=== PATIENT | female | born 1955 | race African-American/Black ===

== ENCOUNTER 2017-04-30 17:39 | Emergency (ER) | payer OTHER ==
[~2017-04-30] VITALS: Ht 154.9 cm; Wt 70.3 kg
[~2017-04-30 17:39] MED LIST: FISHOIL PO; HYDROCHLOROTHIA25 M1 PO; K-DUR10 ME1 PO; PRILOSEC 20 MG20 MG PO; SELENIMIN200 MCG PO; SIMVASTATIN40 MG PO; VITAMIN D1000 UNI1 PO; VITAMIN D400 UNI1 PO
[2017-04-30 18:57] VITALS: BP 124/67
[2017-04-30] MEDS ORDERED: KEFLEX500 MG PO (18:57)
[2017-04-30] MEDS ORDERED: TRIAMCINOLONE 080 G3 TOP (18:57)
== END 2017-04-30 19:16 | disposition home or self-care (01) ==
LOC: ER 17:39
DX: L03.113 Cellulitis of right upper limb (principal); I10 Essential (primary) hypertension; K21.9 Gastro-esophageal reflux disease without esophagitis; F17.200 Nicotine dependence, unspecified, uncomplicated; Z98.890 Other specified postprocedural states; Z90.11 Acquired absence of right breast and nipple; Z85.3 Personal history of malignant neoplasm of breast; Z91.011 Allergy to milk products

== ENCOUNTER 2018-02-01 16:59 | Emergency (ER) | payer OTHER ==
[~2018-02-01] VITALS: Ht 154.9 cm; Wt 67.6 kg
[~2018-02-01 16:59] MED LIST changes: +KEFLEX500 MG PO; +TRIAMCINOLONE 080 G3 TOP
[2018-02-01 17:03] VITALS: BP 123/67
[2018-02-01] MEDS ORDERED: PREDNISONE 20 M20 MG PO (17:18)
[2018-02-01] MEDS ORDERED: KEFLEX500 M1 PO (17:18)
== END 2018-02-01 17:46 | disposition home or self-care (01) ==
LOC: ER 16:59
DX: R21 Rash and other nonspecific skin eruption (principal); I10 Essential (primary) hypertension; K21.9 Gastro-esophageal reflux disease without esophagitis; M19.90 Unspecified osteoarthritis, unspecified site; F17.210 Nicotine dependence, cigarettes, uncomplicated; Z85.3 Personal history of malignant neoplasm of breast; Z91.011 Allergy to milk products

== ENCOUNTER 2019-01-21 11:00 | Emergency (ER) | payer OTHER ==
[~2019-01-21] VITALS: Ht 152.4 cm; Wt 66.2 kg
[~2019-01-21 11:00] MED LIST changes: +KEFLEX500 M1 PO; +PREDNISONE 20 M20 MG PO
[2019-01-21] MEDS ORDERED: CLARITIN10 M2 PO (11:40)
[2019-01-21] MEDS ORDERED: ASPIR 8181 MG PO (11:40)
[2019-01-21 13:09] VITALS: BP 123/54
== END 2019-01-21 13:10 | disposition home or self-care (01) ==
LOC: ER 11:00
DX: M71.22 Synovial cyst of popliteal space [Baker], left knee (principal); K21.9 Gastro-esophageal reflux disease without esophagitis; I10 Essential (primary) hypertension; M13.862 Other specified arthritis, left knee; F17.210 Nicotine dependence, cigarettes, uncomplicated; Z91.011 Allergy to milk products

== ENCOUNTER 2021-07-07 20:40 | Observation (INO) | payer OTHER ==
[~2021-07-07] VITALS: Ht 154.9 cm; Wt 64.4 kg
[~2021-07-07 20:40] MED LIST changes: +ASPIR 8181 MG PO; +CLARITIN10 M2 PO
[2021-07-07 20:50] VITALS: BP 162/74
[2021-07-07 21:59] LABS: ABSOLUTE NEUTROPHILS 4.1 thou/uL (1.4-8.2); EOSINOPHILS 3.1 % (0.0-3.0); HEMATOCRIT 37.6 % (37.0-47.0); HEMOGLOBIN 12.1 gm/dL (12.0-15.0); LYMPHOCYTES 39.6 % (24.0-44.0); MCH 27.7 pg (26.0-34.0); MCHC 32.1 g/dL (28.0-37.0); MCV 86.2 fL (80.0-100.0); MONOCYTES 10.8 % (1.0-8.0); PLATELET COUNT 212 thou/uL (150-400); POLYS 44.5 % (36.0-66.0); RBC 4.36 mil/uL (4.20-5.00); WBC 9.3 thou/uL (4.0-11.0)
[2021-07-07 22:16] LABS: CALCIUM 8.4 mg/dL (8.5-10.1); CREATININE 0.8 mg/dL (0.6-1.0)
[2021-07-07 22:31] LABS: POTASSIUM 2.8 mmol/L (3.5-5.1)
[2021-07-07 23:51] LABS: CHOLESTEROL 187 mg/dL (<200); HDL CHOLESTEROL 43 mg/dL (>40); LDL CHOLESTEROL 122 mg/dL (<100); TC:HDL 4.3 Ratio (Not establshd); TRIGLYCERIDE 110 mg/dL (<150); VLDL 22 mg/dL (<40)
[2021-07-07 23:56] LABS: SERUM ASSESSMENT Clear
--- NOTE | 2021-07-08 04:11 | NUR ---
07/08/21 0010 ASSUMED CARE OF PATIENT IN ER INPATIENT WING. PATIENT IS AAO4 CALM COOPERATIVE AND FOLLOWING COMMANDS. DENIES PAIN OR NEEDS AT THIS TIME. COMPLIANT WITH ALL COMMANDS AND TREATMENT. STATES THAT SHE HOPES THAT SHE WILL BE ABLE TO GO HOME LATER TODAY. VITAL SIGNS STABLE. NO DISTRESS NOTED. PT IS ABLE TO AMBULATE WITH MINIMAL ASSISTANCE. PROVIDED HS SNACK SHE IS HUNGRY. WILL CONTINUE TO MONITOR FOR CHANGES IN PATIENT STATUS.
[2021-07-08 05:57] LABS: CALCIUM 8.1 mg/dL (8.5-10.1); CREATININE 0.7 mg/dL (0.6-1.0); MAGNESIUM 1.6 mg/dL (1.8-2.4); POTASSIUM 3.3 mmol/L (3.5-5.1)
[2021-07-08 07:23] VITALS: BP 123/70
--- NOTE | 2021-07-08 12:11 | EKG ---
[place] [address] [facility] [place] [address] ELECTROCARDIOGRAM REPORT Name: DIPIKABROCK Kaylie Room #: 170-15 ADM IN M.R.#: [id number] Admission: 07/07/21 Attend Phys: Jackie Herbert Discharge: Date of : 59 Report #: [id number] [facility] ED Test Date: 2021-07-07 Test Time: 20:52:56 Pat Name: BROCK BAR Department: Room: 170 15 Gender: F Hide And Skin Classer: ALICE : 1955 Requested By: Jackie Herbert Order Number: [id number] MD: Charles Dos Santos Measurements Intervals [place] Rate: 68 P: 65 HI: 148 QRS: -49 QRSD: 141 T: 94 QT: 470 QTc: 500 Interpretive Statements Sinus arrhythmia Probable left atrial enlargement Left bundle branch block Baseline wander in lead(s) V2 Compared to ECG 04/06/2011 23:05:55 Sinus rhythm no longer present Electronically Signed On 07-08-2021 12:10:51 CDT by Charles Dos Santos [email or web address] <ELECTRONICALLY SIGNED> By: Charles Dos Santos MD, [facility] 07/08/21 1210 51 51 Charles Dos Santos MD, [facility] /EPI
[2021-07-08 15:11] VITALS: BP 123/70
[2021-07-08 15:27] VITALS: BP 135/55
[2021-07-09 02:06] LABS: GLYCOHEMOGLOBIN (HGB A1C) 6.1 % (4.8-5.6)
== END 2021-07-08 15:30 | disposition home or self-care (01) ==
LOC: ER 20:40 → EROBS 23:31
PROVIDERS: Emergency Medicine; Nurse Practitioner Family; ADMIT Hospitalist; ATTEND Hospitalist
DX: R07.89 Other chest pain (principal); Z20.822 Contact with and (suspected) exposure to COVID-19; K21.9 Gastro-esophageal reflux disease without esophagitis; E78.5 Hyperlipidemia, unspecified; I10 Essential (primary) hypertension; E55.9 Vitamin D deficiency, unspecified; Z86.73 Personal history of transient ischemic attack (TIA), and cerebral infarction without residual deficits; Z79.899 Other long term (current) drug therapy; E87.6 Hypokalemia; R42 Dizziness and giddiness; E78.00 Pure hypercholesterolemia, unspecified; F17.200 Nicotine dependence, unspecified, uncomplicated